=== PATIENT | male | born 1940 | race Hispanic/Latino ===

== ENCOUNTER → 2020-08-10 | Outpatient (CLI) | payer MEDICARE, OTHER ==
[~2020-08-10] VITALS: Ht 170.2 cm; Wt 89.8 kg
[~2020-08-10] MED LIST: REGADENOSON 0.4 MG/5 ML PF SYG IVP SCH
== END | disposition home or self-care (01) ==
LOC: SHCH 08:41
PROVIDERS: ATTEND Internal Medicine Cardiovascular Disease
DX: I10 Essential (primary) hypertension (principal); R06.00 Dyspnea, unspecified; R94.31 Abnormal electrocardiogram [ECG] [EKG]; I45.19 Other right bundle-branch block; Z96.653 Presence of artificial knee joint, bilateral; Z87.891 Personal history of nicotine dependence; Z79.899 Other long term (current) drug therapy
CPT/HCPCS: 78452; 93017; 96374; A9500 ×2

== ENCOUNTER 2020-11-12 05:55 | Day surgery (SDC) | payer MEDICARE ==
[2020-11-12] VITALS (8 sets, daily range): BP systolic 121–168; BP diastolic 67–91
[~2020-11-12] VITALS: Ht 170.2 cm; Wt 79.4 kg
[2020-11-12] MEDS ORDERED: 0.9%NACL 1000ML 1,000 ML IV ONE (06:47)
[2020-11-12] MEDS ORDERED: LISI20TA24 PO (07:39)
[2020-11-12] MEDS ORDERED: ASPI-1443 PO (07:39)
[2020-11-12] MEDS ORDERED: PROPOFOL 10 MG/ML 20ML VIAL IV ONE (08:02)
[2020-11-12] MEDS ORDERED: LIDOCAINE PF 100MG/5ML (2%) SYRINGE 5ML ONE (08:04)
== END 2020-11-12 09:45 | disposition home or self-care (01) ==
LOC: ENDO 05:55 → DAH 05:55 → ENDO 09:45
PROVIDERS: ATTEND Internal Medicine Gastroenterology
DX: R13.12 Dysphagia, oropharyngeal phase (principal); Z20.822 Contact with and (suspected) exposure to COVID-19; I49.1 Atrial premature depolarization; I10 Essential (primary) hypertension; Z79.899 Other long term (current) drug therapy; Z79.82 Long term (current) use of aspirin
CPT/HCPCS: 43246; 87635; 93005; A4215; A4216; A4620; A4657; J2001; J2704; J7030

== ENCOUNTER 2020-11-12 19:16 | Emergency (ER) | payer MEDICARE, OTHER ==
[~2020-11-12] VITALS: Ht 170.2 cm; Wt 79.4 kg
[~2020-11-12 19:16] MED LIST changes: +ASPI-1443 PO; +LISI20TA24 PO; -REGADENOSON 0.4 MG/5 ML PF SYG IVP SCH
[2020-11-12 19:20] VITALS: BP 115/69
== END 2020-11-13 00:06 | disposition left against medical advice (07) ==
LOC: EDH 19:16
DX: K94.23 Gastrostomy malfunction (principal); Z53.21 Procedure and treatment not carried out due to patient leaving prior to being seen by health care provider

== ENCOUNTER 2021-04-23 06:12 | Day surgery (SDC) | payer MEDICARE, OTHER ==
[2021-04-22 15:22] LABS: HEMATOCRIT 40.6 % (42-54); MEAN CORPUSCULAR HEMOGLOBIN 30.2 pg (27.0-33.0); MEAN CORPUSCULAR HGB CONC 33.5 g/dL (32.0-36.0); MEAN CORPUSCULAR VOLUME 90.2 fL (79-99); RED BLOOD CELL COUNT(AUTO) 4.5 MIL/uL (4.50-6.20); RED CELL DISTRIBUTION WIDTH 12.8 % (11.0-15.5); WHITE BLOOD COUNT (AUTO) 7.8 K/uL (4.8-10.8)
[2021-04-22 15:36] LABS: INR 1.15 (0.85-1.15); PROTHROMBIN TIME 12.4 SEC (9.6-11.6)
[2021-04-22 15:40] LABS: ALBUMIN 3.5 g/dL (3.5-5.0); BILIRUBIN,TOTAL 0.9 mg/dL (0.2-1.0); POTASSIUM 4.2 mmol/L (3.5-5.1); TOTAL PROTEIN, SERUM 7.9 g/dL (6.0-8.3)
[2021-04-22 16:06] VITALS: BP 142/84
[2021-04-23] VITALS (17 sets, daily range): BP systolic 118–140; BP diastolic 69–87
[~2021-04-23] VITALS: Ht 170.2 cm; Wt 69.2 kg
[~2021-04-23 06:12] MED LIST changes: +mvi PO
[2021-04-23] MEDS ORDERED: LACTATED RINGERS 1000ML 1,000 ML IV ONE (07:07)
[2021-04-23] MEDS ORDERED: PROPOFOL 10 MG/ML 20ML VIAL IV ONE (07:49)
[2021-04-23] MEDS ORDERED: LIDOCAINE PF 100MG/5ML (2%) SYRINGE 5ML ONE (07:49)
[2021-04-23] MEDS ORDERED: MIDAZOLAM HCL 1 MG/ML 2ML VIAL ONE (07:49)
[2021-04-23] MEDS ORDERED: ROCURONIUM 10MG/1ML SYR 10 MG/ML ML ONE (07:50)
[2021-04-23] MEDS ORDERED: FENTANYL CITRATE PF 50 MCG/1 ML 2ML VIAL ONE (07:50)
[2021-04-23] MEDS ORDERED: EPHEDRINE SULFATE 50 MG/ML AMPULE ONE (08:03)
[2021-04-23] MEDS ORDERED: PHENYLEPHRINE HCL 10 MG/ML 1ML VIAL IV ONE (08:07)
[2021-04-23] MEDS ORDERED: OXYMETAZOLINE HCL SPRAY 15 ML BOTTLE ONE (08:32)
[2021-04-23] MEDS ORDERED: GLYCOPYRROLATE 1 MG/5 ML SYRINGE ONE (08:46)
[2021-04-23] MEDS ORDERED: NEOSTIGMINE 5MG/5ML SYR IV ONE (08:46)
[2021-04-23] MEDS ORDERED: RACEPINEPHRINE HCL 2.25% 0.5 ML NEB SOLN ONE (09:44)
[2021-05-01] MEDS ORDERED: TOFA11TA PO (11:00)
== END 2021-04-23 10:50 | disposition home or self-care (01) ==
LOC: DAH 06:12
PROVIDERS: ATTEND Otolaryngology Plastic Surgery within the Head & Neck
DX: C32.2 Malignant neoplasm of subglottis (principal); Z20.822 Contact with and (suspected) exposure to COVID-19; I11.9 Hypertensive heart disease without heart failure; E66.3 Overweight; I49.1 Atrial premature depolarization; Z85.21 Personal history of malignant neoplasm of larynx; Z82.49 Family history of ischemic heart disease and other diseases of the circulatory system; Z83.3 Family history of diabetes mellitus; Z87.891 Personal history of nicotine dependence; Z90.49 Acquired absence of other specified parts of digestive tract; Z98.890 Other specified postprocedural states; Z98.52 Vasectomy status; Z68.26 Body mass index [BMI] 26.0-26.9, adult; Z79.01 Long term (current) use of anticoagulants; Z79.899 Other long term (current) drug therapy; Z79.82 Long term (current) use of aspirin; Z80.51 Family history of malignant neoplasm of kidney; Z92.3 Personal history of irradiation
CPT/HCPCS: 31536; 36415; 71046; 80053; 85027; 85610; 85730; 87635; 88305; 88312; 88331; 88332; 88341; 88342; 93005; 94640; A4215; A4221; A4222; A4223; A4663; A6260; C9803; J2001; J2250; J2370; J2704; J2710; J3010; J3490 ×2; J7120

== ENCOUNTER 2021-08-16 00:34 | Inpatient (IN) | payer MEDICARE ==
[~2021-08-16] VITALS: Ht 170.2 cm; Wt 61.8 kg
[2021-08-16 01:17] LABS: BASOPHILS % (AUTO) 0.3 % (0.0-5.0); LYMPHOCYTES % (AUTO) 1.2 % (21.0-51.0); MEAN CORPUSCULAR HEMOGLOBIN 31.4 pg (27.0-33.0); MEAN CORPUSCULAR HGB CONC 33.1 g/dL (32.0-36.0); MEAN CORPUSCULAR VOLUME 94.9 fL (79-99); NEUTROPHILS % (AUTO) 91.5 % (40.0-77.0); PLATELET COUNT (AUTO) 164 K/uL (130-400); RED BLOOD CELL COUNT(AUTO) 2.74 MIL/uL (4.50-6.20); RED CELL DISTRIBUTION WIDTH 16.7 % (11.0-15.5); WHITE BLOOD COUNT (AUTO) 6.9 K/uL (4.8-10.8)
[2021-08-16 01:27] LABS: CREATININE 1.2 mg/dL (0.5-1.5); POTASSIUM 3.7 mmol/L (3.5-5.1)
[2021-08-16 01:32] LABS: ALBUMIN 2.6 g/dL (3.5-5.0); BILIRUBIN,TOTAL 0.7 mg/dL (0.2-1.0); TOTAL PROTEIN, SERUM 5.6 g/dL (6.0-8.3)
[2021-08-16 02:18] LABS: MAGNESIUM 1.4 mg/dL (1.80-2.40)
[2021-08-16 02:36] LABS: BILIRUBIN,URINE Negative (NEGATIVE); COLOR,URINE Yellow (YELLOW); GLUCOSE, URINE (UA) Negative (NEGATIVE); KETONES,URINE Negative (NEGATIVE); LEUKOCYTE ESTERASE ,URINE Large (NEGATIVE); NITRATE,URINE Negative (NEGATIVE); OCCULT BLOOD,URINE Large (NEGATIVE); PH,URINE 6.5 (5.0-8.0); PROTEIN,URINE 300 mg/dL (NEGATIVE)
[2021-08-16 02:44] LABS: APPEARANCE,URINE CLOUDY (CLEAR)
[2021-08-16 02:47] LABS: BACTERIA,URINE Many /HPF (None Seen); SQUAMOUS EPITHELIAL CELL,UR 0-2 /HPF (0-2); WBC,URINE >100 /HPF (0-1)
[2021-08-16] MEDS ORDERED: MORPHINE 4 MG SYG IV PRN (05:30)
[2021-08-16] MEDS ORDERED: MAGNESIUM 2GM PREMIX 50ML 50 ML IV PRN (05:30)
[2021-08-16] MEDS ORDERED: ACETAMINOPHEN 325 MG TAB PO PRN (05:30)
[2021-08-16] MEDS ORDERED: ONDANSETRON 4MG INJ IV PRN (05:30)
[2021-08-16] MEDS ORDERED: MORPHINE 2 MG SYG IV PRN (05:30)
[2021-08-16] MEDS ORDERED: MEROPENEM 500 MG VIAL IV SCH (05:30)
[2021-08-16] MEDS: 0.9%NACL 1000ML 1,000 ML IV SCH ×2 (05:48→16:26)
[2021-08-16] MEDS ORDERED: ASCO500T19 PO (07:21)
[2021-08-16] MEDS ORDERED: ZINC220T4 PO (07:22)
[2021-08-16] MEDS ORDERED: TRIA15CR48 TP (07:24)
[2021-08-16] MEDS ORDERED: ACET-3194 PO (07:25)
[2021-08-16] MEDS ORDERED: LEVO137T2 PO (07:26)
[2021-08-16] MEDS ORDERED: TOFA11TA PO (07:27)
[2021-08-16] MEDS ORDERED: ASPI-1197 PO (07:28)
[2021-08-16] MEDS ORDERED: BALS60OI TP (07:28)
[2021-08-16] MEDS ORDERED: MULT-1203 PO (07:29)
[2021-08-16] MEDS ORDERED: FAMO20TA8 PO (07:31)
[2021-08-16] MEDS ORDERED: [UNRECOGNIZED DRUG - CODE] IJ (07:31)
[2021-08-16] MEDS ORDERED: LISI20TA24 PO (07:33)
[2021-08-16] MEDS ORDERED: CYAN250014 PO (07:33)
[2021-08-16] MEDS ORDERED: CEFTRIAXONE 2GM VIAL IVP SCH (08:00)
[2021-08-16] MEDS: ENOXAPARIN SODIUM 40 MG/0.4 ML SYRINGE SQ SCH (08:53)
[2021-08-16] MEDS ORDERED: FAMOTIDINE 20MG VIAL IV SCH (09:00)
[2021-08-16] MEDS ORDERED: VANCOMYCIN PROTOCOL PER PHARMACY IV SCH (09:30)
[2021-08-16] MEDS ORDERED: BISACODYL 10 MG SUPP.RECT RC SCH (09:30)
[2021-08-16] MEDS: ASPIRIN 81MG CHEW TAB PO SCH (09:38)
[2021-08-16] MEDS: LEVOTHYROXINE 25 MCG TABLET PO SCH (09:38)
[2021-08-16] MEDS: CYANOCOBALAMIN (VITAMIN B-12) 1,000 MCG TABLET PO SCH (09:38)
[2021-08-16] MEDS: ASCORBIC ACID 500 MG TAB PO SCH ×2 (09:38→18:20)
[2021-08-16] MEDS: FAMOTIDINE 20MG TAB PO SCH (09:39)
[2021-08-16] MEDS: LEVOTHYROXINE 112 MCG TABLET PO SCH (09:39)
[2021-08-16 09:47] LABS: % IRON SATURATION 5.8 % (30-44)
[2021-08-16 12:00] VITALS: BP 106/53
[2021-08-16] MEDS ORDERED: PHARMACY COMMUNICATION MISC SCH (13:00)
[2021-08-16] MEDS: MEROPENEM 1 GM VIAL IVP SCH ×2 (15:29→22:36)
[2021-08-16] MEDS ORDERED: VANCOMYCIN 1.25 GM/250 ML BAG 250 ML IV ONE (15:30)
[2021-08-16] MEDS: BALSAM PERU/CASTOR OIL 60 GM TUBE TP SCH ×2 (15:30→22:37)
[2021-08-16 16:00] VITALS: BP 92/59
[2021-08-16] MEDS: TOFACITINIB CITRATE 11 MG PO SCH (18:20)
[2021-08-16 20:00] VITALS: BP 88/56
[2021-08-17] VITALS: BP 108/63
[2021-08-17] MEDS: 0.9%NACL 1000ML 1,000 ML IV SCH (02:28)
[2021-08-17 04:00] VITALS: BP 124/62
[2021-08-17] MEDS: MEROPENEM 1 GM VIAL IVP SCH ×3 (05:00→20:46)
[2021-08-17] MEDS: MAGNESIUM 2GM PREMIX 50ML 50 ML IV PRN (05:03)
[2021-08-17 05:26] LABS: BASOPHILS % (AUTO) 0.2 % (0.0-5.0); LYMPHOCYTES % (AUTO) 1.8 % (21.0-51.0); MEAN CORPUSCULAR HEMOGLOBIN 30.6 pg (27.0-33.0); MEAN CORPUSCULAR HGB CONC 31.9 g/dL (32.0-36.0); MEAN CORPUSCULAR VOLUME 95.9 fL (79-99); MONOCYTES % (AUTO) 4.6 % (3.0-13.0); NEUTROPHILS % (AUTO) 91.6 % (40.0-77.0); PLATELET COUNT (AUTO) 128 K/uL (130-400); RED BLOOD CELL COUNT(AUTO) 2.71 MIL/uL (4.50-6.20); RED CELL DISTRIBUTION WIDTH 17.2 % (11.0-15.5)
[2021-08-17] MEDS: LEVOTHYROXINE 25 MCG TABLET PO SCH (05:41)
[2021-08-17] MEDS: LEVOTHYROXINE 112 MCG TABLET PO SCH (05:41)
[2021-08-17 06:15] LABS: MAGNESIUM 1.9 mg/dL (1.80-2.40); PHOSPHORUS 3.6 mg/dL (2.5-4.9)
[2021-08-17 06:17] LABS: POTASSIUM 2.9 mmol/L (3.5-5.1)
[2021-08-17] MEDS ORDERED: LIDOCAINE HCL-MPF 1% 2ML VIAL IV PRN (06:30)
[2021-08-17] MEDS ORDERED: POTASSIUM CHLORIDE 20MEQ/100ML 100 ML IV PRN (06:30)
[2021-08-17] MEDS ORDERED: KCL 20 MEQ ERTAB PO PRN (06:30)
[2021-08-17 08:00] VITALS: BP 99/57
[2021-08-17] MEDS: ASPIRIN 81MG CHEW TAB PO SCH (08:28)
[2021-08-17] MEDS: CYANOCOBALAMIN (VITAMIN B-12) 1,000 MCG TABLET PO SCH (08:28)
[2021-08-17] MEDS: FAMOTIDINE 20MG TAB PO SCH (08:28)
[2021-08-17] MEDS: ASCORBIC ACID 500 MG TAB PO SCH ×2 (08:28→17:20)
[2021-08-17] MEDS: POLYETHYLENE GLYCOL 3350 17 GM POWD.PACK PO SCH (08:29)
[2021-08-17] MEDS: ENOXAPARIN SODIUM 40 MG/0.4 ML SYRINGE SQ SCH (08:30)
[2021-08-17] MEDS: BALSAM PERU/CASTOR OIL 60 GM TUBE TP SCH ×2 (08:31→20:52)
[2021-08-17] MEDS: TOFACITINIB CITRATE 11 MG PO SCH (09:00)
[2021-08-17] MEDS: POTASSIUM CHLORIDE 10% ELIXIR 20 MEQ/15 ML UDCUP PO PRN ×3 (10:33→15:52)
[2021-08-17 12:00] VITALS: BP 99/62
[2021-08-17] MEDS ORDERED: VANCOMYCIN 1G/250ML KIT 250 ML IV SCH (14:00)
[2021-08-17 16:00] VITALS: BP 99/62
[2021-08-17 20:00] VITALS: BP 96/70
[2021-08-17] MEDS ORDERED: IRON SUCROSE COMPLEX 100 MG in 0.9%NACL 50ML 50 ML IV ONE (21:30)
[2021-08-18] VITALS: BP 113/61
[2021-08-18 04:58] VITALS: BP 106/72
[2021-08-18 05:38] LABS: BASOPHILS % (AUTO) 0.2 % (0.0-5.0); EOSINOPHILS % (AUTO) 0.2 % (0.0-8.0); HEMATOCRIT 28.4 % (42-54); LYMPHOCYTES % (AUTO) 2.8 % (21.0-51.0); MEAN CORPUSCULAR HEMOGLOBIN 30.6 pg (27.0-33.0); MEAN CORPUSCULAR HGB CONC 31.7 g/dL (32.0-36.0); MEAN CORPUSCULAR VOLUME 96.6 fL (79-99); MONOCYTES % (AUTO) 3.8 % (3.0-13.0); NEUTROPHILS % (AUTO) 91.8 % (40.0-77.0); PLATELET COUNT (AUTO) 138 K/uL (130-400); RED BLOOD CELL COUNT(AUTO) 2.94 MIL/uL (4.50-6.20); RED CELL DISTRIBUTION WIDTH 16.8 % (11.0-15.5); WHITE BLOOD COUNT (AUTO) 12.9 K/uL (4.8-10.8)
[2021-08-18] MEDS: MEROPENEM 1 GM VIAL IVP SCH ×3 (05:44→21:43)
[2021-08-18] MEDS: LEVOTHYROXINE 112 MCG TABLET PO SCH (05:44)
[2021-08-18] MEDS: LEVOTHYROXINE 25 MCG TABLET PO SCH (05:44)
[2021-08-18 06:04] LABS: ALBUMIN 2.3 g/dL (3.5-5.0); BILIRUBIN,TOTAL 0.5 mg/dL (0.2-1.0); CREATININE 0.8 mg/dL (0.5-1.5); PHOSPHORUS 2.4 mg/dL (2.5-4.9); POTASSIUM 3.6 mmol/L (3.5-5.1)
[2021-08-18 08:00] VITALS: BP 107/65
[2021-08-18] MEDS: TOFACITINIB CITRATE 11 MG PO SCH (09:00)
[2021-08-18] MEDS: ASCORBIC ACID 500 MG TAB PO SCH ×2 (10:53→21:43)
[2021-08-18] MEDS: FAMOTIDINE 20MG TAB PO SCH (10:53)
[2021-08-18] MEDS: CYANOCOBALAMIN (VITAMIN B-12) 1,000 MCG TABLET PO SCH (10:53)
[2021-08-18] MEDS: ASPIRIN 81MG CHEW TAB PO SCH (10:53)
[2021-08-18] MEDS: POLYETHYLENE GLYCOL 3350 17 GM POWD.PACK PO SCH (10:54)
[2021-08-18] MEDS: ENOXAPARIN SODIUM 40 MG/0.4 ML SYRINGE SQ SCH (10:54)
[2021-08-18] MEDS: BALSAM PERU/CASTOR OIL 60 GM TUBE TP SCH ×2 (10:54→21:00)
[2021-08-18] MEDS ORDERED: FUROSEMIDE 40MG VIAL IV SCH (11:00)
[2021-08-18 11:07] LABS: ABG BASE EXCESS -1.7 mmol/L (-2.0-3.0); ABG HCO3 18.3 mmol/L (21.0-28.0); ABG OXYGEN SATURATION 98.5 % (95.0-99.0); ABG PCO2 19 mmHg (35-48)
[2021-08-18 11:11] LABS: CREATININE 0.9 mg/dL (0.5-1.5); POTASSIUM 3.4 mmol/L (3.5-5.1)
[2021-08-18 11:54] VITALS: BP 119/71
[2021-08-18 16:00] VITALS: BP 125/70
[2021-08-18 20:00] VITALS: BP 115/53
[2021-08-18] MEDS ORDERED: IRON SUCROSE COMPLEX 100 MG/5 ML VIAL IVP SCH (21:00)
[2021-08-19] VITALS: BP_SYST 119; BP_SYST 127; BP_DIAS 71; BP_DIAS 73
[2021-08-19 04:00] VITALS: BP 121/73
[2021-08-19] MEDS: MEROPENEM 1 GM VIAL IVP SCH ×2 (04:45→13:59)
[2021-08-19 04:56] LABS: BASOPHILS % (AUTO) 0.3 % (0.0-5.0); EOSINOPHILS % (AUTO) 0.4 % (0.0-8.0); HEMATOCRIT 27.6 % (42-54); LYMPHOCYTES % (AUTO) 4.3 % (21.0-51.0); MEAN CORPUSCULAR HEMOGLOBIN 31.4 pg (27.0-33.0); MEAN CORPUSCULAR VOLUME 95.2 fL (79-99); MONOCYTES % (AUTO) 4.3 % (3.0-13.0); NEUTROPHILS % (AUTO) 89.2 % (40.0-77.0); PLATELET COUNT (AUTO) 121 K/uL (130-400); RED CELL DISTRIBUTION WIDTH 16.2 % (11.0-15.5); WHITE BLOOD COUNT (AUTO) 7.3 K/uL (4.8-10.8)
[2021-08-19 05:07] LABS: ALBUMIN 2.2 g/dL (3.5-5.0); BILIRUBIN,TOTAL 0.5 mg/dL (0.2-1.0); CREATININE 0.7 mg/dL (0.5-1.5); MAGNESIUM 1.7 mg/dL (1.80-2.40); PHOSPHORUS 2.5 mg/dL (2.5-4.9); POTASSIUM 3.2 mmol/L (3.5-5.1); TOTAL PROTEIN, SERUM 5.9 g/dL (6.0-8.3)
[2021-08-19 05:20] LABS: B-TYPE NATRIURETIC PEPTIDE 161 pg/mL (0-100)
[2021-08-19] MEDS: LEVOTHYROXINE 25 MCG TABLET PO SCH (06:08)
[2021-08-19] MEDS: LEVOTHYROXINE 112 MCG TABLET PO SCH (06:08)
[2021-08-19] MEDS: POTASSIUM CHLORIDE 10% ELIXIR 20 MEQ/15 ML UDCUP PO PRN (06:09)
[2021-08-19] MEDS: MAGNESIUM 2GM PREMIX 50ML 50 ML IV PRN ×2 (06:09→11:39)
[2021-08-19 07:30] VITALS: BP 126/60
[2021-08-19] MEDS: TOFACITINIB CITRATE 11 MG PO SCH (09:00)
[2021-08-19] MEDS ORDERED: MAGNESIUM 2GM PREMIX 50ML 50 ML IV PRN (10:30)
[2021-08-19] MEDS: FAMOTIDINE 20MG TAB PO SCH (10:55)
[2021-08-19] MEDS: CYANOCOBALAMIN (VITAMIN B-12) 1,000 MCG TABLET PO SCH (10:55)
[2021-08-19] MEDS: ASCORBIC ACID 500 MG TAB PO SCH (10:55)
[2021-08-19] MEDS: POLYETHYLENE GLYCOL 3350 17 GM POWD.PACK PO SCH (10:55)
[2021-08-19] MEDS: ASPIRIN 81MG CHEW TAB PO SCH (10:55)
[2021-08-19] MEDS: ENOXAPARIN SODIUM 40 MG/0.4 ML SYRINGE SQ SCH (10:56)
[2021-08-19] MEDS: BALSAM PERU/CASTOR OIL 60 GM TUBE TP SCH (10:56)
[2021-08-19 11:00] VITALS: BP 120/68
== END 2021-08-19 15:10 | DRG 205 ==
LOC: EDH 00:34 → EDHIP 05:22 → 3CH 11:22
PROVIDERS: ADMIT Hospitalist; ATTEND Hospitalist
DX: J95.01 Hemorrhage from tracheostomy stoma (principal); A41.51 Sepsis due to Escherichia coli [E. coli]; N39.0 Urinary tract infection, site not specified; J96.10 Chronic respiratory failure, unspecified whether with hypoxia or hypercapnia; E46 Unspecified protein-calorie malnutrition; G93.40 Encephalopathy, unspecified; Z16.12 Extended spectrum beta lactamase (ESBL) resistance; Z16.24 Resistance to multiple antibiotics; Z85.89 Personal history of malignant neoplasm of other organs and systems; M19.90 Unspecified osteoarthritis, unspecified site; K21.9 Gastro-esophageal reflux disease without esophagitis; M06.9 Rheumatoid arthritis, unspecified; Z85.21 Personal history of malignant neoplasm of larynx; E83.42 Hypomagnesemia; Z87.891 Personal history of nicotine dependence; Z90.49 Acquired absence of other specified parts of digestive tract; Z96.653 Presence of artificial knee joint, bilateral; D64.9 Anemia, unspecified; E78.5 Hyperlipidemia, unspecified; I10 Essential (primary) hypertension; F32.A Depression, unspecified; R53.81 Other malaise; D69.6 Thrombocytopenia, unspecified; K56.41 Fecal impaction; Y83.8 Other surgical procedures as the cause of abnormal reaction of the patient, or of later complication, without mention of misadventure at the time of the procedure; Y82.8 Other medical devices associated with adverse incidents; Z74.01 Bed confinement status; Z68.21 Body mass index [BMI] 21.0-21.9, adult
CPT/HCPCS: 36415; 36600; 70490; 71045; 71250; 74176; 80048; 80053; 80202; 81001; 82435; 82550; 82728; 82803; 82947; 83540; 83550; 83605; 83735; 83880; 84100; 84132; 84145; 84295; 84484; 85018; 85025; 86140; 87040; 87077; 87088; 87186; 92610; 93005; 94760; 97039; G0378; J0696; J1650; J1756; J1940; J2185; J3370; J3475; J3480; J3490; J7030

== ENCOUNTER 2021-09-01 21:56 | Emergency (ER) | payer MEDICARE ==
[~2021-09-01 21:56] MED LIST changes: +ACET-3194 PO; +ASCO500T19 PO; +ASPI-1197 PO; -ASPI-1443 PO; +BALS60OI TP; +CYAN250014 PO; +FAMO20TA8 PO; +LEVO137T2 PO; +MULT-1203 PO; +TOFA11TA PO; +TRIA15CR48 TP; +ZINC220T4 PO; -mvi PO
[2021-09-02 03:08] VITALS: BP 116/71
== END 2021-09-02 04:19 ==
LOC: EDH 21:56
DX: J95.01 Hemorrhage from tracheostomy stoma (principal); Z20.822 Contact with and (suspected) exposure to COVID-19; K21.9 Gastro-esophageal reflux disease without esophagitis; M19.90 Unspecified osteoarthritis, unspecified site; Z79.82 Long term (current) use of aspirin; Z79.899 Other long term (current) drug therapy; Z85.21 Personal history of malignant neoplasm of larynx; Z87.440 Personal history of urinary (tract) infections
CPT/HCPCS: 71045; 87635; 87804 ×2; 87880; 99284; C9803